=== PATIENT | female | born 1965 | race Two or more races ===

== ENCOUNTER 2020-09-19 18:57 | Emergency (ER) | payer MEDICAID ==
[~2020-09-19] VITALS: Ht 165.1 cm; Wt 82.0 kg
[2020-09-19] MEDS ORDERED: DIPHENHYDRAMINE 50MG CAPSULE PO ONE (20:00)
[2020-09-19] MEDS ORDERED: P50 MT (22:18)
[2020-09-19] MEDS ORDERED: PREDNISONE 20MG TABLET PO SCH (22:30)
[2020-09-19 22:47] VITALS: BP 125/66
== END 2020-09-19 22:48 | disposition home or self-care (01) ==
LOC: ER 18:57
DX: T78.40XA Allergy, unspecified, initial encounter (principal); Z98.890 Other specified postprocedural states; X58.XXXA Exposure to other specified factors, initial encounter
CPT/HCPCS: 99283; J7512; Q0163